=== PATIENT | male | born 1990 | race Two or more races ===

== ENCOUNTER 2020-11-10 00:46 | Emergency (ER) | payer MEDICAID ==
[~2020-11-10] VITALS: Ht 177.8 cm; Wt 114.3 kg
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
[2020-11-10] MEDS ORDERED: MECLIZINE CHEWABLE 25 MG TAB PO ONE (01:30)
--- NOTE | 2020-11-10 01:38 | NUR ---
PT IN CT
[2020-11-10] MEDS ORDERED: MECLIZINE CHEWABLE 25 MG TAB ONE (01:43)
--- NOTE | 2020-11-10 02:37 | NUR ---
PT RESTING IN ROOM. VS STABLE. CALL LIGHT IN PLACE. WILL CONTINUE TO MONITOR.
--- NOTE | 2020-11-10 03:04 | NUR ---
bedside report given to TATY Bray
--- NOTE | 2020-11-10 03:11 | NUR ---
REPORT FROM RICK POSEY
[2020-11-10 04:37] VITALS: BP 128/70
== END 2020-11-10 04:39 | disposition home or self-care (01) ==
LOC: ED 04:19
DX: S06.0X0A Concussion without loss of consciousness, initial encounter (principal); S16.1XXA Strain of muscle, fascia and tendon at neck level, initial encounter; R42 Dizziness and giddiness; Z88.0 Allergy status to penicillin; V49.59XA Passenger injured in collision with other motor vehicles in traffic accident, initial encounter; Y93.89 Activity, other specified; Y92.410 Unspecified street and highway as the place of occurrence of the external cause; Y99.8 Other external cause status
CPT/HCPCS: 70450; 72125; 99285